=== PATIENT | male | born 1990 | race Caucasian/White ===

== ENCOUNTER 2016-10-21 22:47 | Emergency (ER) | payer OTHER, BC ==
--- NOTE | 2016-10-21 23:23 | ED ORDER SUMMARY ---
..... Patient: SAMIRA MORENO OrderSheet [facility] VisitID: [id number] [address] [place] [address] 25y, M Registration Date/Time: 10/21/2016 ORDER SHEET Weight: 99.7 kg (stated) Allergies: No Known Drug Allergy GENERAL ORDERS: MEDICATION ORDERS: Itcftwq-Llhcpa-Zzpnr Pertussis IM 0.5 mL (NOW) (23:08 10/21/2016 Nancy R.N. verbal order read back to Juan SHELTON) (Ack 23:08 JSanders R.N.) (23:14 JSanders R.N.) IV FLUIDS: ORDER SHEET NOTES: [Electronically signed by Han Hanson R.N. (23:36 10/21/2016)] [Electronically signed by Mello Tristan MD (23:13 10/23/2016)] [Electronically locked/signed by Han Hanson R.N. (23:36 10/21/2016)]
--- NOTE | 2016-10-21 23:23 | ED NURSING NOTES ---
Clinical Report - Nurses [facility] [place] [address] [place] [address] 10/21/2016 22:50 Patient: SAMIRA MORENO TRIAGE Triage time 22:54 Oct 21 2016. Acuity: LEVEL 4. Chief Complaint: INJURY TO RIGHT HAND. 22:58 10/21/16. SEPSIS SCREEN: Sepsis Screen. Negative (no infection suspected/documented). KHADRA COMA SCORE: [place] Coma Scale: 15- eyes open spontaneously (4); best verbal response- oriented x 4 (5); best motor response- obeys commands (6). --22:58 Yesika Limon R.N. 22:54 10/21/16. BP: 142/89 (regular adult cuff) taken on the left arm. HR: 74. RR: 17. O2 saturation: 100%. Temp: 98 F (oral). Pain level now: 05/20. --22:58 Yesika Limon R.N. Weight: 99.7 kg stated. Height/Length: 70 inches Per Patient. BMI: 31.5. --22:56 Yesika Limon R.N. Medications None. --22:55 Yesika Limon R.N. Allergies No Known Drug Allergy. --22:55 Yesika Limon R.N. History Arrived by private vehicle. Historian: patient. Accompanied by family. This occurred today. He sustained a laceration (from underneath car). 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 PAST MEDICAL HX: Tetanus status: up-to-date. SOCIAL HX: Never smoker. Occasional alcohol use; consumes beer and liquor. No drug use. No infectious disease exposure. ABUSE ASSESSMENT: No report of abuse. --22:58 Yesika Limon R.N. PROBLEMS: no known problems. ADDITIONAL SURGERIES: Wrist surgery. --22:56 Yesika Limon R.N. Interventions ID band on patient. To treatment room. --22:58 Yesika Limon R.N. PHYSICAL ASSESSMENT 22:59 10/21/16. Ambulatory to room. GENERAL / NEURO / PSYCH: Oriented X 4. Alert. Appears in no acute distress. EXTREMITIES: Capillary refill is less than 2 seconds in the extremities. Extremity pulses are within normal limits. Extremities exhibit normal ROM. Neuro-vascular status intact to the extremity. Dorsal right hand: subcutaneous 2.0 cm laceration with controlled bleeding. SKIN: Skin is warm. Small subcutaneous laceration to right hand; 3.0 cm. --22:59 Yesika Limon R.N. NURSING PROGRESS NOTES 22:59 10/21/16. The plan of care for this patient has been created. Extremity elevated. Reassurance given. Two patient identifiers checked. Call light placed in reach. Side rails up x 1. Bed placed in lowest position. Brakes of bed on. Patient ready for evaluation- chart flagged and ED physician notified. --22:59 Yesika Limon R.N. 23:13 10/21/2016 CEJWHCU-TXEZKR-CVIFT PERTUSSIS IM 0.5 mL given. (Lot#: [id number], expiration date: 09/18/2018, Bar Captain: sanofi pasteur). Given in the left deltoid. Allergies verified and confirmed 5 rights. Vaccine information statement provided to the patient. --23:14 Yesika Limon R.N. 23:15 10/21/16. ( Physician in with patient). --23:15 Yesika Limon R.N. 23:18. WOUND REPAIR: Wound repair performed by ED physician. Assisted by one tech. The wound is located on the right hand. Preparation: suture tray set-up. Wound cleansed per physician and irrigated per physician. Procedure: wound repaired with sutures. Post-procedure: he was stable, no complications and bleeding controlled. Total time of assist / procedure: 15 minutes. ( 1 suture pack used in repair). --23:35 Han Hanson R.N. 23:27. Applied dressing consisting of Band-Aid, following the application of antibiotic ointment (bacitracin). --23:36 Han Hanson R.N. 23:30. The patient is calm and resting quietly. Overall patient status is improved- he states feels better. GENERAL / NEURO / PSYCH: Alert. Oriented X 4. RESPIRATORY: No respiratory distress. SKIN: Skin is warm and dry. --23:36 Han Hanson R.N. DISPOSITION / DISCHARGE Departure time: 23:32. Condition at departure: improved and stable. No learning barriers present. Discharge instructions provided and reviewed with video control operator and the patient. Patient and video control operator verbalized understanding. Written instructions provided in Occitan. The patient was discharged home and accompanied by video control operator. He left the Emergency Department ambulatory and via private vehicle. Fuel Cell Assembler driving. FALL RISK ASSESSMENT: Fall risk assessment completed. No fall risk identified. --23:34 Han Hanson R.N. Locked/Released at 10/21/2016 23:37 by Han Hanson R.N.
--- NOTE | 2016-10-21 23:23 | ED NURSING NOTES ---
Clinical Report - Nurses [facility] [place] [address] [place] [address] 10/21/2016 22:50 Patient: SAMIRA MORENO TRIAGE Triage time 22:54 Oct 21 2016. Acuity: LEVEL 4. Chief Complaint: INJURY TO RIGHT HAND. 22:58 10/21/16. SEPSIS SCREEN: Sepsis Screen. Negative (no infection suspected/documented). KHADRA COMA SCORE: [place] Coma Scale: 15- eyes open spontaneously (4); best verbal response- oriented x 4 (5); best motor response- obeys commands (6). --22:58 Yesika Liomn R.N. 22:54 10/21/16. BP: 142/89 (regular adult cuff) taken on the left arm. HR: 74. RR: 17. O2 saturation: 100%. Temp: 98 F (oral). Pain level now: 05/20. --22:58 Yesika Limon R.N. Weight: 99.7 kg stated. Height/Length: 70 inches Per Patient. BMI: 31.5. --22:56 Yesika Limon R.N. Medications None. --22:55 Yesika Limon R.N. Allergies No Known Drug Allergy. --22:55 Yesika Limon R.N. History Arrived by private vehicle. Historian: patient. Accompanied by family. This occurred today. He sustained a laceration (from underneath car). 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 PAST MEDICAL HX: Tetanus status: up-to-date. SOCIAL HX: Never smoker. Occasional alcohol use; consumes beer and liquor. No drug use. No infectious disease exposure. ABUSE ASSESSMENT: No report of abuse. --22:58 Yesika Limon R.N. PROBLEMS: no known problems. ADDITIONAL SURGERIES: Wrist surgery. --22:56 Yesika Limon R.N. Interventions ID band on patient. To treatment room. --22:58 Yesika Limon R.N. PHYSICAL ASSESSMENT 22:59 10/21/16. Ambulatory to room. GENERAL / NEURO / PSYCH: Oriented X 4. Alert. Appears in no acute distress. EXTREMITIES: Capillary refill is less than 2 seconds in the extremities. Extremity pulses are within normal limits. Extremities exhibit normal ROM. Neuro-vascular status intact to the extremity. Dorsal right hand: subcutaneous 2.0 cm laceration with controlled bleeding. SKIN: Skin is warm. Small subcutaneous laceration to right hand; 3.0 cm. --22:59 Yesika Limon R.N. NURSING PROGRESS NOTES 22:59 10/21/16. The plan of care for this patient has been created. Extremity elevated. Reassurance given. Two patient identifiers checked. Call light placed in reach. Side rails up x 1. Bed placed in lowest position. Brakes of bed on. Patient ready for evaluation- chart flagged and ED physician notified. --22:59 Yesika Limon R.N. 23:13 10/21/2016 [id number]-CJAMK PERTUSSIS IM 0.5 mL given. (Lot#: [id number], expiration date: 09/18/2018, Chiropractor Sole Practitioner: sanofi pasteur). Given in the left deltoid. Allergies verified and confirmed 5 rights. Vaccine information statement provided to the patient. --23:14 Yesika Limon R.N. 23:15 10/21/16. ( Physician in with patient). --23:15 Yesika Limon R.N. 23:18. WOUND REPAIR: Wound repair performed by ED physician. Assisted by one tech. The wound is located on the right hand. Preparation: suture tray set-up. Wound cleansed per physician and irrigated per physician. Procedure: wound repaired with sutures. Post-procedure: he was stable, no complications and bleeding controlled. Total time of assist / procedure: 15 minutes. ( 1 suture pack used in repair). --23:35 Han Hanson R.N. 23:27. Applied dressing consisting of Band-Aid, following the application of antibiotic ointment (bacitracin). --23:36 Han Hanson R.N. 23:30. The patient is calm and resting quietly. Overall patient status is improved- he states feels better. GENERAL / NEURO / PSYCH: Alert. Oriented X 4. RESPIRATORY: No respiratory distress. SKIN: Skin is warm and dry. --23:36 Han Hanson R.N. DISPOSITION / DISCHARGE Departure time: 23:32. Condition at departure: improved and stable. No learning barriers present. Discharge instructions provided and reviewed with taxi cab driver and the patient. Patient and taxi cab driver verbalized understanding. Written instructions provided in Belarusian. The patient was discharged home and accompanied by taxi cab driver. He left the Emergency Department ambulatory and via private vehicle. Release Of Information Specialist driving. FALL RISK ASSESSMENT: Fall risk assessment completed. No fall risk identified. --23:34 Han Hanson R.N. Locked/Released at 10/21/2016 23:37 by Han Hanson R.N.
--- NOTE | 2016-10-21 23:23 | ED CLINICAL REPORT ---
Clinical Report - Physicians/Mid Levels [facility] [address] [place] [address] 10/21/2016 22:50 [id number] Time Seen: 23:01 Oct 21 2016. Arrived- By private vehicle. Historian- patient. CPT: ER phys charges level 3 plus (#911175). Up to 2.5 cm simple scalp, neck (#[id number]). HISTORY OF PRESENT ILLNESS Chief Complaint: Injury to the right hand. The injury happened today. The patient sustained a laceration. Occurred at home. ( This occurred today. He sustained a laceration (from underneath car). 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 Patient is experiencing mild pain. No other injury. REVIEW OF SYSTEMS The patient sustained a laceration. No swelling, tingling, numbness, weakness or foreign body. PAST HISTORY Problems: no known problems. Medications: None. Allergies: No Known Drug Allergy. SOCIAL HISTORY Never smoker. Occasional alcohol use. No drug use. ADDITIONAL NOTES The nursing notes have been reviewed. PHYSICAL EXAM Vital Signs: 10/21/2016 22:54 BP: 142/89. HR: 74. RR: 17. O2 saturation: 100%. Temp: 98 F. Pain level now: 1/10. Skin: Skin warm. Extremities: Dorsal right hand: mild tenderness and subcutaneous laceration of the central aspect of the dorsal hand. SEE LACERATION PROCEDURE NOTE. Neurovascular intact distally. No deformity. No limitation of extension. No hand injury. Extremities otherwise negative. Neuro, Vascular and Tendons: Vascular status intact. Sensation intact. Motor intact. Tendon function intact. Neuro: Oriented X 3. No motor deficit. No sensory deficit. PROGRESS AND PROCEDURES Laceration Repair: Location: right hand. Length: 2.3 cm. Complexity: simple (local anesthesia used and sutured). Wound depth/shape- subcutaneous and linear. Wound is clean. Distal neuro/vascular/tendon status normal. Local anesthesia provided using 2% lidocaine with bicarb. Prepped with Hibiclens. Wound explored, cleansed, irrigated and examined to the base in bloodless field extensively with normal saline. Closure of skin: interrupted 4-0 (4 sutures). Post-procedure: he is stable and there are no complications. Bleeding is controlled and neuro-vascular status is intact distal to the wound. Dressing applied. Tetanus immunization given. Estimated blood loss: 1 mL. Course of Care: Tdap. Patient/family counseled. Disposition: Discharged. Condition: stable and improved. CLINICAL IMPRESSION Single deep laceration to the right hand.No foreign body present. INSTRUCTIONS Protect wound and keep wound area clean. Change dressing twice daily. Keep wounds dry. You may wash wounds briefly, then dry. Apply neosporin twice daily. Sutures should be removed in seven days. Limit use of your right hand until better. Warnings: TETANUS: You were given a tetanus shot during your visit. Make a note for future reference. GENERAL WARNINGS: Return or contact your physician immediately if your condition worsens or changes unexpectedly, if not improving as expected, or if other problems arise. OTC Medications: Acetaminophen (available over the counter): take according to label instructions. Understanding of the discharge instructions verbalized by patient and family. Discharge instructions reviewed with and understanding was verbalized by spouse. (Electronically signed by Mello Tristan MD 10/23/2016 23:13)
--- NOTE | 2016-10-21 23:23 | ED ORDER SUMMARY ---
..... Patient: SAMIRA MORENO OrderSheet [facility] VisitID: [id number] [address] [place] [address] 25y, M Registration Date/Time: 10/21/2016 ORDER SHEET Weight: 99.7 kg (stated) Allergies: No Known Drug Allergy GENERAL ORDERS: MEDICATION ORDERS: Yqwqieh-Lubcta-Tgbhn Pertussis IM 0.5 mL (NOW) (23:08 10/21/2016 Nancy R.N. verbal order read back to Juan SHELTON) (Ack 23:08 JSanders R.N.) (23:14 JSanders R.N.) IV FLUIDS: ORDER SHEET NOTES: [Electronically signed by Han Hanson R.N. (23:36 10/21/2016)] [Electronically signed by Mello Tristan MD (23:13 10/23/2016)] [Electronically locked/signed by Han Hanson R.N. (23:36 10/21/2016)]
--- NOTE | 2016-10-21 23:23 | ED CLINICAL REPORT ---
Clinical Report - Physicians/Mid Levels [facility] [address] [place] [address] 10/21/2016 22:50 [id number] Time Seen: 23:01 Oct 21 2016. Arrived- By private vehicle. Historian- patient. CPT: ER phys charges level 3 plus (#374117). Up to 2.5 cm simple scalp, neck (#[id number]). HISTORY OF PRESENT ILLNESS Chief Complaint: Injury to the right hand. The injury happened today. The patient sustained a laceration. Occurred at home. ( This occurred today. He sustained a laceration (from underneath car). 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 Patient is experiencing mild pain. No other injury. REVIEW OF SYSTEMS The patient sustained a laceration. No swelling, tingling, numbness, weakness or foreign body. PAST HISTORY Problems: no known problems. Medications: None. Allergies: No Known Drug Allergy. SOCIAL HISTORY Never smoker. Occasional alcohol use. No drug use. ADDITIONAL NOTES The nursing notes have been reviewed. PHYSICAL EXAM Vital Signs: 10/21/2016 22:54 BP: 142/89. HR: 74. RR: 17. O2 saturation: 100%. Temp: 98 F. Pain level now: 1/10. Skin: Skin warm. Extremities: Dorsal right hand: mild tenderness and subcutaneous laceration of the central aspect of the dorsal hand. SEE LACERATION PROCEDURE NOTE. Neurovascular intact distally. No deformity. No limitation of extension. No hand injury. Extremities otherwise negative. Neuro, Vascular and Tendons: Vascular status intact. Sensation intact. Motor intact. Tendon function intact. Neuro: Oriented X 3. No motor deficit. No sensory deficit. PROGRESS AND PROCEDURES Laceration Repair: Location: right hand. Length: 2.3 cm. Complexity: simple (local anesthesia used and sutured). Wound depth/shape- subcutaneous and linear. Wound is clean. Distal neuro/vascular/tendon status normal. Local anesthesia provided using 2% lidocaine with bicarb. Prepped with Hibiclens. Wound explored, cleansed, irrigated and examined to the base in bloodless field extensively with normal saline. Closure of skin: interrupted 4-0 (4 sutures). Post-procedure: he is stable and there are no complications. Bleeding is controlled and neuro-vascular status is intact distal to the wound. Dressing applied. Tetanus immunization given. Estimated blood loss: 1 mL. Course of Care: Tdap. Patient/family counseled. Disposition: Discharged. Condition: stable and improved. CLINICAL IMPRESSION Single deep laceration to the right hand.No foreign body present. INSTRUCTIONS Protect wound and keep wound area clean. Change dressing twice daily. Keep wounds dry. You may wash wounds briefly, then dry. Apply neosporin twice daily. Sutures should be removed in seven days. Limit use of your right hand until better. Warnings: TETANUS: You were given a tetanus shot during your visit. Make a note for future reference. GENERAL WARNINGS: Return or contact your physician immediately if your condition worsens or changes unexpectedly, if not improving as expected, or if other problems arise. OTC Medications: Acetaminophen (available over the counter): take according to label instructions. Understanding of the discharge instructions verbalized by patient and family. Discharge instructions reviewed with and understanding was verbalized by spouse. (Electronically signed by Mello Tristan MD 10/23/2016 23:13)
--- NOTE | 2016-10-23 23:14 | ED MED RECONCILIATION SUMMARY ---
Patient: SAMIRA MORENO Medication Reconciliation Report [facility] VisitID: [id number] [place] [address] 25y, M Registration Date/Time: 10/21/2016 Weight: 99.7 kg Height/Length: 70 in. BMI: 31.5 ALLERGIES: No Known Drug Allergy The patient's Home Medications are listed below: NONE. The source(s) of the original Home Medication information: Not obtained. The following Medications were given to the patient in the Emergency Department: [id number]-YQWDWE-UIQID PERTUSSIS [IM] IM 0.5 mL, administered: 10/21/2016 11:13:00 PM The following Medications were prescribed to the patient: Acetaminophen (available over the counter): take according to label instructions. -- Mello Tristan MD
--- NOTE | 2016-10-23 23:14 | ED DISCHARGE INSTRUCTIONS ---
Patient: SAMIRA MORENO General Instructions [facility] VisitID: [id number] [place] [address] 25y, M Registration Date/Time: 10/21/2016 Single deep laceration to the right hand.No foreign body present. INSTRUCTIONS Protect wound and keep wound area clean. Change dressing twice daily. Keep wounds dry. You may wash wounds briefly, then dry. Apply neosporin twice daily. Sutures should be removed in seven days. Limit use of your right hand until better. Warnings: TETANUS: You were given a tetanus shot during your visit. Make a note for future reference. GENERAL WARNINGS: Return or contact your physician immediately if your condition worsens or changes unexpectedly, if not improving as expected, or if other problems arise. OTC Medications: Acetaminophen (available over the counter): take according to label instructions. Understanding of the discharge instructions verbalized by patient and family. Discharge instructions reviewed with and understanding was verbalized by spouse. ADDITIONAL INFORMATION Laceration (All Closures) Alaceration is a cut through the skin. This will usually require stitches (sutures) or magalie if it is deep. Minor cuts may be treated with a surgical tape closure orskin glue. Home care The following guidelines will help you care for your laceration at home: Extremity, face, or trunk wounds Keep the wound clean and dry. If a bandage was applied and it becomes wet or dirty, replace it. Otherwise, leave it in place for the first 24 hours. If stitches or magalie were used, clean the wound daily. After removing the bandage, wash the area with soap and water. Use a wet cotton swab to loosen and remove any blood or crust that forms. The doctor may prescribe an antibiotic cream or ointment to prevent infection. Do not stop taking this medication until you have finished the prescribed course or the doctor tells you to stop. The doctor may also prescribe medications for pain. Follow the doctors instructions for taking these medications. You may remove the bandage to shower as usual after the first 24 hours, but do not soak the area in water (no swimming) until the stitches or magalie are removed. If surgical tape was used, keep the area clean and dry. If it becomes wet, blot it dry with a towel. If skin glue was used, do not scratch, rub, or pick at the adhesive film. Do not place tape directly over the film. Do not apply liquid, ointment, or creams to the wound while the film is in place. Do not clean the wound with peroxide and do not apply ointments. Avoid activities that cause heavy sweating until the film has fallen off. Protect the wound from prolonged exposure to sunlight or tanning lamps. You may shower as usual but do not soak the wound in water (no baths or swimming). The film will fall off by itself in 510 days. Scalp wounds During the first two days, you may carefully rinse your hair in the shower to remove blood, glass or dirt particles. After two days, you may shower and shampoo your hair normally. Do not soak your scalp in the tub or go swimming until the stitches or magalie have been removed. Talk with your doctor before applying any antibiotic ointment to the wound. Mouth wounds Eat soft foods to reduce pain. If the cut is inside of your mouth, clean by rinsing after each meal and at bedtime with a mixture of equal parts water and hydrogen peroxide (do not swallow!). Or, you can use a cotton swab to directly apply hydrogen peroxide onto the cut. Mouth wounds can be painful when eating. You may use an gcau-lbq-iojtona local numbing solution for pain relief. If this is not available, you may use any numbing solution for teething babies. You may apply this directly to the sores with a cotton-tip swab or with your finger. Follow-up care Follow up with your health care provider. Most skin wounds heal within ten days. Mouth and facial wounds heal within five days. However, even with proper treatment, a wound infection may sometimes occur. Therefore, you should check the wound daily for signs of infection listed below. Stitches should be removed from the face within five days; stitches and magalie should be removed from other parts of the body within 714 days. If dissolving stitches were used in the mouth, these will fall out or dissolve without the need for removal. If tape closures were used, remove them yourself if they have not fallen off after 7 days. Ifskin glue was used, the film will fall off by itself in 510 days. When to seek medical care Get prompt medical attention if any of these occur: Bleeding not controlled by direct pressure Signs of infection, including increasing pain in the wound, increasing wound redness or swelling, or pus coming from the wound Fever of 100.4F (38C) or higher, or as directed by your health care provider Stitches or magalie come apart or fall out or surgical tape falls off before 7 days Wound edges re-open Laceration, Extremity (Sutures, [place], Or Tape) A laceration is a cut through the skin. This will usually require stitches (sutures) or magalie if it is deep. Minor cuts may be treated with surgical tape closures. Home care The following guidelines will help you care for your laceration at home: Keep the wound clean and dry. If a bandage was applied and it becomes wet or dirty, replace it. Otherwise, leave it in place for the first 24 hours, then change it once a day or as directed. If stitches or magalie were used, clean the wound daily: After removing the bandage, wash the area with soap and water. Use a wet cotton swab to loosen and remove any blood or crust that forms. After cleaning, keep the wound clean and dry. Talk with your doctor before applying any antibiotic ointment to the wound. Reapply the bandage. You may remove the bandage to shower as usual after the first 24 hours, but do not soak the area in water (no swimming) until the stitches or magalie are removed. If surgical tape closures were used, keep the area clean and dry. If it becomes wet, blot it dry with a towel. The doctor may prescribe an antibiotic cream or ointment to prevent infection. Do not stop taking this medication until you have finished the prescribed course or the doctor tells you to stop. The doctor may also prescribe medications for pain. Follow the doctors instructions for taking these medications. If you have chronic liver or kidney disease or ever had a stomach ulcer or GI bleeding, talk with your doctor before using these medicines. Follow-up care Follow up with your health care provider. Most skin wounds heal within ten days. However, an infection may sometimes occur despite proper treatment. Therefore, check the wound daily for the signs of infection listed below. Stitches and magalie should be removed within 714 days. If surgical tape closures were used, you may remove them after 10 days, if they have not fallen off by then. Notify your doctor if you notice persistent numbness or weakness in the injured extremity. (Note:A radiologist will review any X-rays that were taken. We will notify you of any new findings that may affect your care.) When to seek medical care Get prompt medical attention if any of these occur: Increasing pain in the wound Redness, swelling, or pus coming from the wound Fever of 100.4F (38C) or higher, or as directed by your health care provider If stitches or magalie come apart or fall out before your next appointment If the surgical tape closures fall off within seven days, or the wound edges re-open Bleeding not controlled by direct pressure Laceration (All Closures) Alaceration is a cut through the skin. This will usually require stitches (sutures) or magalie if it is deep. Minor cuts may be treated with a surgical tape closure orskin glue. Home care The following guidelines will help you care for your laceration at home: Extremity, face, or trunk wounds Keep the wound clean and dry. If a bandage was applied and it becomes wet or dirty, replace it. Otherwise, leave it in place for the first 24 hours. If stitches or magalie were used, clean the wound daily. After removing the bandage, wash the area with soap and water. Use a wet cotton swab to loosen and remove any blood or crust that forms. The doctor may prescribe an antibiotic cream or ointment to prevent infection. Do not stop taking this medication until you have finished the prescribed course or the doctor tells you to stop. The doctor may also prescribe medications for pain. Follow the doctors instructions for taking these medications. You may remove the bandage to shower as usual after the first 24 hours, but do not soak the area in water (no swimming) until the stitches or magalie are removed. If surgical tape was used, keep the area clean and dry. If it becomes wet, blot it dry with a towel. If skin glue was used, do not scratch, rub, or pick at the adhesive film. Do not place tape directly over the film. Do not apply liquid, ointment, or creams to the wound while the film is in place. Do not clean the wound with peroxide and do not apply ointments. Avoid activities that cause heavy sweating until the film has fallen off. Protect the wound from prolonged exposure to sunlight or tanning lamps. You may shower as usual but do not soak the wound in water (no baths or swimming). The film will fall off by itself in 510 days. Scalp wounds During the first two days, you may carefully rinse your hair in the shower to remove blood, glass or dirt particles. After two days, you may shower and shampoo your hair normally. Do not soak your scalp in the tub or go swimming until the stitches or magalie have been removed. Talk with your doctor before applying any antibiotic ointment to the wound. Mouth wounds Eat soft foods to reduce pain. If the cut is inside of your mouth, clean by rinsing after each meal and at bedtime with a mixture of equal parts water and hydrogen peroxide (do not swallow!). Or, you can use a cotton swab to directly apply hydrogen peroxide onto the cut. Mouth wounds can be painful when eating. You may use an ikkc-vvk-fximwyq local numbing solution for pain relief. If this is not available, you may use any numbing solution for teething babies. You may apply this directly to the sores with a cotton-tip swab or with your finger. Follow-up care Follow up with your health care provider. Most skin wounds heal within ten days. Mouth and facial wounds heal within five days. However, even with proper treatment, a wound infection may sometimes occur. Therefore, you should check the wound daily for signs of infection listed below. Stitches should be removed from the face within five days; stitches and magalie should be removed from other parts of the body within 714 days. If dissolving stitches were used in the mouth, these will fall out or dissolve without the need for removal. If tape closures were used, remove them yourself if they have not fallen off after 7 days. Ifskin glue was used, the film will fall off by itself in 510 days. When to seek medical care Get prompt medical attention if any of these occur: Bleeding not controlled by direct pressure Signs of infection, including increasing pain in the wound, increasing wound redness or swelling, or pus coming from the wound Fever of 100.4F (38C) or higher, or as directed by your health care provider Stitches or magalie come apart or fall out or surgical tape falls off before 7 days Wound edges re-open Laceration, Extremity (Sutures, Magalie, Or Tape) A laceration is a cut through the skin. This will usually require stitches (sutures) or magalie if it is deep. Minor cuts may be treated with surgical tape closures. Home care The following guidelines will help you care for your laceration at home: Keep the wound clean and dry. If a bandage was applied and it becomes wet or dirty, replace it. Otherwise, leave it in place for the first 24 hours, then change it once a day or as directed. If stitches or magalie were used, clean the wound daily: After removing the bandage, wash the area with soap and water. Use a wet cotton swab to loosen and remove any blood or crust that forms. After cleaning, keep the wound clean and dry. Talk with your doctor before applying any antibiotic ointment to the wound. Reapply the bandage. You may remove the bandage to shower as usual after the first 24 hours, but do not soak the area in water (no swimming) until the stitches or magalie are removed. If surgical tape closures were used, keep the area clean and dry. If it becomes wet, blot it dry with a towel. The doctor may prescribe an antibiotic cream or ointment to prevent infection. Do not stop taking this medication until you have finished the prescribed course or the doctor tells you to stop. The doctor may also prescribe medications for pain. Follow the doctors instructions for taking these medications. If you have chronic liver or kidney disease or ever had a stomach ulcer or GI bleeding, talk with your doctor before using these medicines. Follow-up care Follow up with your health care provider. Most skin wounds heal within ten days. However, an infection may sometimes occur despite proper treatment. Therefore, check the wound daily for the signs of infection listed below. Stitches and magalie should be removed within 714 days. If surgical tape closures were used, you may remove them after 10 days, if they have not fallen off by then. Notify your doctor if you notice persistent numbness or weakness in the injured extremity. (Note:A radiologist will review any X-rays that were taken. We will notify you of any new findings that may affect your care.) When to seek medical care Get prompt medical attention if any of these occur: Increasing pain in the wound Redness, swelling, or pus coming from the wound Fever of 100.4F (38C) or higher, or as directed by your health care provider If stitches or magalie come apart or fall out before your next appointment If the surgical tape closures fall off within seven days, or the wound edges re-open Bleeding not controlled by direct pressure You have been given the following additional information: Laceration, All Laceration, Extrem (Suture, Staple, Or Tape) Laceration, All Laceration, Extrem (Suture, Staple, Or Tape) Limit use of your right hand until better. (Electronically signed by Mello Tristan MD 10/23/2016 23:13)
--- NOTE | 2016-10-23 23:14 | ED MED RECONCILIATION SUMMARY ---
Patient: SAMIRA MORENO Medication Reconciliation Report [facility] VisitID: [id number] [place] [address] 25y, M Registration Date/Time: 10/21/2016 Weight: 99.7 kg Height/Length: 70 in. BMI: 31.5 ALLERGIES: No Known Drug Allergy The patient's Home Medications are listed below: NONE. The source(s) of the original Home Medication information: Not obtained. The following Medications were given to the patient in the Emergency Department: [id number]-[id number]-[id number] PERTUSSIS [IM] IM 0.5 mL, administered: 10/21/2016 11:13:00 PM The following Medications were prescribed to the patient: Acetaminophen (available over the counter): take according to label instructions. -- Mello Tristan MD
--- NOTE | 2016-10-23 23:14 | ED MAR SUMMARY ---
..... Medication Administration Record [facility] [address] [place] [address] Patient: SAMIRA MORENO Visit ID: [id number] 25y, M Weight: 99.7 kg Height/Length: 70 in BMI: 31.5 ALLERGIES: No Known Drug Allergy Given 23:13 10/21/2016 Yesika Limon R.N. Medication Administered: [id number]-[id number]-NZCIY PERTUSSIS [IM], Dose: 0.5 mL IM. Medication Ordered: Eaythgo-Bixqaj-Hezzo Pertussis IM 0.5 mL (NOW).
--- NOTE | 2016-10-23 23:14 | ED MAR SUMMARY ---
..... Medication Administration Record [facility] [address] [place] [address] Patient: SAMIRA MORENO Visit ID: [id number] 25y, M Weight: 99.7 kg Height/Length: 70 in BMI: 31.5 ALLERGIES: No Known Drug Allergy Given 23:13 10/21/2016 Yesika Limon R.N. Medication Administered: CHSAVVV-LARJVH-IQRDP PERTUSSIS [IM], Dose: 0.5 mL IM. Medication Ordered: Azephua-Hmwawu-Kxkrj Pertussis IM 0.5 mL (NOW).
== END 2016-10-21 23:32 | disposition home or self-care (01) ==
LOC: ED SRH 22:47
DX: S61.411A Laceration without foreign body of right hand, initial encounter (principal); W26.8XXA Contact with other sharp object(s), not elsewhere classified, initial encounter; Y93.89 Activity, other specified; Y92.019 Unspecified place in single-family (private) house as the place of occurrence of the external cause; Y99.0 Civilian activity done for income or pay; Z23 Encounter for immunization